=== PATIENT | male | born 1985 | race Caucasian/White ===

== ENCOUNTER 2016-06-04 18:38 | Emergency (ER) | payer SELFPAY ==
[~2016-06-04] VITALS: Ht 175.2 cm; Wt 95.3 kg
[~2016-06-04 18:38] MED LIST: AMOXIL500 MG PO; BACTRIM DS 8001 TA1 PO; CEPHALEXIN500 M1 PO; CLARITIN10 MG PO; FLONASE0.05 MG/AC NS; HYDROCODONE BIT1 T11 PO; KEFLEX500 MG PO; MEDROL DOSEPAK4 MG PO; MIDRIN (DURADR1 CAP PO; NKHM; ROBITUSSIN AC 10 MG/ PO; SEPTRA DS 800 M1 TAB PO; TRAMADOL HCL50 MG PO; VICODIN ES 7501 TAB PO; VOLTAREN50 M1 PO; ZOFRAN4 MG PO
[2016-06-04 18:56] VITALS: BP 124/70
[2016-06-04] MEDS ORDERED: IMITREX100 MG PO (20:18)
[2016-06-04] MEDS ORDERED: Zofran4 MG PO (20:19)
== END 2016-06-04 20:23 | disposition home or self-care (01) ==
LOC: ED 18:38
DX: G44.009 Cluster headache syndrome, unspecified, not intractable (principal); F17.200 Nicotine dependence, unspecified, uncomplicated

== ENCOUNTER 2016-10-16 20:01 | Emergency (ER) | payer SELFPAY ==
[~2016-10-16] VITALS: Wt 95.3 kg
[~2016-10-16 20:01] MED LIST changes: +IMITREX100 MG PO; +Zofran4 MG PO
[2016-10-16 20:05] VITALS: BP 132/88
[2016-10-16] MEDS ORDERED: PREDNISONE10 MG PO (20:12)
== END 2016-10-16 21:29 | disposition home or self-care (01) ==
LOC: ED 20:01
DX: T63.441A Toxic effect of venom of bees, accidental (unintentional), initial encounter (principal); H93.8X1 Other specified disorders of right ear; R03.0 Elevated blood-pressure reading, without diagnosis of hypertension; F17.200 Nicotine dependence, unspecified, uncomplicated; Y92.9 Unspecified place or not applicable

== ENCOUNTER → 2018-12-29 | Outpatient (CLI) | payer BC ==
[~2018-12-29] MED LIST changes: +PREDNISONE10 MG PO
[2018-12-29 15:04] LABS: HEMATOCRIT 47.5 % (42.0-52.0); HEMOGLOBIN 15.7 g/dl (14.0-18.0); MEAN CELL VOLUME 90.6 fl (80.0-94.0); MEAN CORPUSCULAR HGB CONC 33.1 g/dl (33.0-37.0); MEAN PLATELET VOLUME 11.6 fl (9.6-12.3); RED BLOOD COUNT 5.24 10*6/uL (4.50-5.90); RED CELL DISTRI WIDTH 12.5 % (0-14.5); WHITE BLOOD COUNT 10.6 10*3/uL (4.8-10.8)
[2018-12-29 15:33] LABS: ALBUMIN 3.6 gm/dl (3.1-4.5); ALKALINE PHOSPHATASE 46 U/L (45-117); BUN 10 mg/dl (7-24); CHLORIDE 106 mmol/L (98-107); CHOLESTEROL 166 mg/dL (<200); CREATININE 0.83 mg/dL (0.70-1.30); HDL CHOLESTEROL 30 mg/dl (40-60); LDL CHOLESTEROL 99 mg/dL (9-159); SGOT/AST 26 IU/L (3-35); SGPT/ALT 55 U/L (12-78); SODIUM 139 mmol/L (136-145); TOTAL PROTEIN 7.2 gm/dL (6.4-8.2); TRIGLYCERIDES 185 mg/dl (<150); VLDL CHOLESTEROL 37 mg/dL (6-40)
== END | disposition home or self-care (01) ==
LOC: LAB 13:23
PROVIDERS: Family Medicine
DX: E55.9 Vitamin D deficiency, unspecified (principal); R53.83 Other fatigue; R21 Rash and other nonspecific skin eruption

== ENCOUNTER 2019-02-04 20:41 | Emergency (ER) | payer BC ==
[~2019-02-04] VITALS: Ht 172.7 cm; Wt 99.8 kg
--- NOTE | ~2019-02-04 | EKG ---
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
[2019-02-04 22:26] LABS: BASO % 0.3 % (0.0-1.0); EOS # 0.1 10*3/uL (0.0-0.4); HEMATOCRIT 44.4 % (42.0-52.0); HEMOGLOBIN 15.1 g/dl (14.0-18.0); LYMPH # 2.7 10*3/uL (1.3-4.4); LYMPH % 28.5 % (27.0-41.0); MEAN CELL VOLUME 89.3 fl (80.0-94.0); MEAN CORPUSCULAR HGB 30.4 pg (27.0-31.0); MEAN PLATELET VOLUME 11.1 fl (9.6-12.3); MONO % 10.4 % (3.0-9.0); NEUT # 5.6 10*3/uL (2.3-7.9); NEUT % 59.6 % (47.0-73.0); PLATELET COUNT AUTOMATED 160 10*3/uL (130-400); RED BLOOD COUNT 4.97 10*6/uL (4.50-5.90); RED CELL DISTRI WIDTH 12.5 % (0-14.5); WHITE BLOOD COUNT 9.4 10*3/uL (4.8-10.8)
[2019-02-04 22:45] VITALS: BP 134/85
[2019-02-04] MEDS ORDERED: PREDNISONE10 MG PO (23:27)
[2019-02-04] MEDS ORDERED: ZITHROMAX250 MG PO (23:27)
== END 2019-02-05 00:05 | disposition home or self-care (01) ==
LOC: ED 20:41
PROVIDERS: Emergency Medicine Emergency Medical Services
DX: J20.9 Acute bronchitis, unspecified (principal); L50.9 Urticaria, unspecified; Z79.899 Other long term (current) drug therapy

== ENCOUNTER 2019-03-16 20:21 | Emergency (ER) | payer BC ==
[~2019-03-16] VITALS: Ht 172.7 cm; Wt 99.8 kg
[~2019-03-16 20:21] MED LIST changes: +ZITHROMAX250 MG PO
[2019-03-16 20:34] VITALS: BP 121/80
[2019-03-16] MEDS ORDERED: ESCITALOPRAM OX10 MG PO (20:45)
[2019-03-16] MEDS ORDERED: AUGMENTIN 875875 MG PO (21:28)
== END 2019-03-16 21:45 | disposition home or self-care (01) ==
LOC: ED 20:21
DX: H66.92 Otitis media, unspecified, left ear (principal); J06.9 Acute upper respiratory infection, unspecified; Z79.899 Other long term (current) drug therapy

== ENCOUNTER 2021-05-01 19:50 | Emergency (ER) | payer SELFPAY ==
[~2021-05-01] VITALS: Ht 175.2 cm; Wt 90.7 kg
[~2021-05-01 19:50] MED LIST changes: +AUGMENTIN 875875 MG PO; +ESCITALOPRAM OX10 MG PO
[2021-05-01 19:56] VITALS: BP 121/77
== END 2021-05-01 22:59 | disposition home or self-care (01) ==
LOC: ED 19:50
DX: M25.572 Pain in left ankle and joints of left foot (principal)

== ENCOUNTER 2024-04-04 13:27 | Emergency (ER) | payer SELFPAY ==
[~2024-04-04] VITALS: Ht 170.1 cm; Wt 90.7 kg
[2024-04-04 16:36] VITALS: BP 110/68
== END 2024-04-04 19:07 | disposition home or self-care (01) ==
LOC: ED 13:27
DX: R55 Syncope and collapse (principal); Z20.822 Contact with and (suspected) exposure to COVID-19; Z90.89 Acquired absence of other organs; Z87.891 Personal history of nicotine dependence